=== PATIENT | male | born 1965 | race Caucasian/White ===

== ENCOUNTER 2023-10-04 15:41 | Inpatient (IN) | payer BC ==
[~2023-10-04] VITALS: Ht 170.2 cm; Wt 86.0 kg
[2023-10-04 16:02] LABS: APPEARANCE, URINE MANUAL TURBID (CLEAR); COLOR, URINE MANUAL RED (YELLOW)
[2023-10-04 16:04] LABS: BILIRUBIN, URINE MANUAL NEGATIVE (NEGATIVE); GLUCOSE, URINE (UA) MANUAL NEGATIVE (NEGATIVE); PROTEIN, URINE MANUAL 3+ mg/dL (NEGATIVE); SPECIFIC GRAVITY,URINE MANUAL 1.015 (1.002-1.035); UROBILINOGEN, URINE MANUAL NORMAL (NORMAL)
[2023-10-04 16:05] LABS: BLOOD URINE MANUAL POSITIVE (NEGATIVE); KETONE, URINE MANUAL OBSCURED mg/dL (NEGATIVE); LEUKOCYTE ESTERASE, URINE MAN POSITIVE (NEGATIVE); NITRITE, URINE MANUAL OBSCURED (NEGATIVE)
[2023-10-04 16:24] LABS: BASO # 0.1 10^3/uL (0.0-0.2); BASO % 0.4 % (0.0-1.0); EOS # 0.1 10^3/uL (0.0-0.5); EOS % 0.7 % (0.0-3.0); HEMATOCRIT 36.4 % (42.0-52.0); HEMOGLOBIN 11.7 g/dl (13.5-17.5); LYMPH % 7.2 % (24.0-44.0); MEAN CORPUSCULAR HEMOGLOBIN 27.5 pg (27.0-33.0); MEAN CORPUSCULAR HGB CONC 32.1 g/dl (32.0-36.5); MEAN CORPUSCULAR VOLUME 85.4 fl (80.0-96.0); MONO # 1.3 10^3/uL (0.0-0.8); MONO % 9.5 % (2.0-8.0); NEUTROPHILS # 11.2 10^3/uL (1.5-8.5); NEUTROPHILS % 81.8 % (36.0-66.0); PLATELET COUNT, AUTOMATED 343 10^3/uL (150-450); RED BLOOD COUNT 4.26 10^6/uL (4.30-6.10); WHITE BLOOD COUNT 13.7 10^3/uL (4.0-10.0)
[2023-10-04 16:27] LABS: BACTERIA, URINE SMALL AMOUNT; RBC, URINE TNTC /hpf (0-3); SQUAMOUS EPITHELIAL CELL URINE SMALL AMOUNT /hpf (SMALL AMT)
[2023-10-04 16:28] LABS: HYALINE CAST, URINE NONE SEEN /lpf (0-1)
[2023-10-04] MEDS: HYDROMORPHONE HCL 0.5 MG/ 0.5 ML SYRINGE IV PRN (16:57)
[2023-10-04] MEDS: ONDANSETRON 4MG 2ML VIAL IV ONE (16:58)
[2023-10-04 17:01] LABS: ETHYL ALCOHOL (ETHANOL) < 0.003 % (0.000-0.010)
[2023-10-04 17:03] LABS: ALBUMIN 3.4 G/DL (3.2-5.2); ALKALINE PHOSPHATASE 64 U/L (46-116); ALT/SGPT 17 U/L (7.0-40); AST/SGOT 37 U/L (<34); BILIRUBIN,DIRECT 0.2 MG/DL (<0.4); BILIRUBIN,TOTAL 0.5 MG/DL (0.3-1.2); BLOOD UREA NITROGEN 16 MG/DL (9-23); CALCIUM LEVEL 9.3 MG/DL (8.5-10.1); CARBON DIOXIDE LEVEL 28 MMOL/L (20-31); CHLORIDE LEVEL 102 MMOL/L (98-107); CREATININE FOR GFR 1.41 MG/DL (0.70-1.30); GLUCOSE, FASTING 105 MG/DL (60-100); POTASSIUM SERUM 4.5 MMOL/L (3.5-5.1); SODIUM LEVEL 138 MMOL/L (136-145); TOTAL PROTEIN 6.9 G/DL (5.7-8.2)
[2023-10-04 17:06] LABS: THYROID STIMULATING HORMONE 1.085 uIU/ML (0.55-4.78)
[2023-10-04] MEDS: NS 1,000 ML IV ONE (17:29)
[2023-10-04 17:50] LABS: INR 1.13; PARTIAL THROMBOPLASTIN TIME 35.5 SECONDS (24.8-34.2); PROTHROMBIN TIME 14.2 SECONDS (12.5-14.5)
[2023-10-04 18:29] LABS: AMPHETAMINES LEVEL URINE NEGATIVE (NEGATIVE); BARBITURATES URINE NEGATIVE (NEGATIVE); BENZODIAZEPINES URINE NEGATIVE (NEGATIVE); CANNABINOIDS URINE NEGATIVE (NEGATIVE); COCAINE METABOLITE URINE NEGATIVE (NEGATIVE); METHADONE URINE NEGATIVE (NEGATIVE); OPIATES URINE NEGATIVE (NEGATIVE); PHENCYCLIDINE URINE NEGATIVE (NEGATIVE)
[2023-10-04] MEDS: oxyBUTYnin 5 MG TAB PO SCH (21:01)
[2023-10-04] MEDS ORDERED: FISH1CAP26 PO (21:05)
[2023-10-04] MEDS ORDERED: THERTAB52 PO (21:05)
[2023-10-04] MEDS ORDERED: TUMERIC PO (21:05)
[2023-10-04] MEDS ORDERED: HOME MED LIST COMPLETE! XX SCH (21:10)
[2023-10-04] MEDS ORDERED: MOM 30ML SUSPENSION UDC PO PRN (22:50)
[2023-10-04] MEDS: amLODIPine 5 MG TAB PO ONE (23:20)
[2023-10-04] MEDS: hydrALAZINE 20MG/ML 1ML VIAL IV PRN (23:21)
[2023-10-05] VITALS (7 sets, daily range): BP systolic 149–178; BP diastolic 73–88; TEMP 98–99.7; O2SAT 95–98
[2023-10-05] MEDS: MORPHINE 2 MG/ML 1ML VIAL IV PRN (00:43)
[2023-10-05 01:28] LABS: HEMATOCRIT 31.4 % (42.0-52.0); HEMOGLOBIN 10.2 g/dl (13.5-17.5)
[2023-10-05] MEDS: ACETAMINOPHEN TAB 650MG DOSE (2X325MG) PO PRN (02:01)
[2023-10-05 06:19] LABS: HEMOGLOBIN 10.3 g/dl (13.5-17.5); MEAN CORPUSCULAR HEMOGLOBIN 27.3 pg (27.0-33.0); MEAN CORPUSCULAR HGB CONC 32.2 g/dl (32.0-36.5); MEAN CORPUSCULAR VOLUME 84.9 fl (80.0-96.0); PLATELET COUNT, AUTOMATED 300 10^3/uL (150-450); RED BLOOD COUNT 3.77 10^6/uL (4.30-6.10); WHITE BLOOD COUNT 13.8 10^3/uL (4.0-10.0)
[2023-10-05 06:53] LABS: ALBUMIN 2.9 G/DL (3.2-5.2); BILIRUBIN,TOTAL 0.7 MG/DL (0.3-1.2); CALCIUM LEVEL 8.8 MG/DL (8.5-10.1); CREATININE FOR GFR 1.36 MG/DL (0.70-1.30); GLOMERULAR FILTRATION RATE 57.3 (>56); POTASSIUM SERUM 4.3 MMOL/L (3.5-5.1)
[2023-10-05] MEDS ORDERED: SODIUM CHLORIDE 0.9% 1000ML IV ONE (08:05)
[2023-10-05] MEDS ORDERED: ISOVUE-370 76% 100ML VIAL As Ordered ONE (08:31)
[2023-10-05] MEDS: NS 1,000 ML IV SCH (09:38)
[2023-10-05 13:20] LABS: HEMATOCRIT 33.3 % (42.0-52.0); HEMOGLOBIN 10.9 g/dl (13.5-17.5)
[2023-10-05] MEDS: HEPARIN SOD (PORCINE) 5000UNITS/ML 1ML VIAL/SYRINGE SQ SCH (15:19)
[2023-10-05 15:28] LABS: CALCIUM LEVEL 8.8 MG/DL (8.5-10.1); CREATININE FOR GFR 1.39 MG/DL (0.70-1.30); GLOMERULAR FILTRATION RATE 55.9 (>56); POTASSIUM SERUM 3.9 MMOL/L (3.5-5.1)
[2023-10-05] MEDS ORDERED: PROHANCE 279.3MG/ML 15ML VIAL As Ordered ONE (18:20)
[2023-10-05] MEDS ORDERED: PROHANCE 279.3MG/ML 5ML VIAL As Ordered ONE (18:20)
[2023-10-06 03:56] VITALS: BP 139/82; TEMP 98.4; O2SAT 94
[2023-10-06 06:01] LABS: HEMATOCRIT 30.9 % (42.0-52.0); HEMOGLOBIN 9.7 g/dl (13.5-17.5); MEAN CORPUSCULAR HEMOGLOBIN 27.2 pg (27.0-33.0); MEAN CORPUSCULAR HGB CONC 31.4 g/dl (32.0-36.5); MEAN CORPUSCULAR VOLUME 86.6 fl (80.0-96.0); PLATELET COUNT, AUTOMATED 279 10^3/uL (150-450); RED BLOOD COUNT 3.57 10^6/uL (4.30-6.10); WHITE BLOOD COUNT 10.5 10^3/uL (4.0-10.0)
[2023-10-06 06:19] LABS: CALCIUM LEVEL 8.3 MG/DL (8.5-10.1); CREATININE FOR GFR 1.43 MG/DL (0.70-1.30); GLOMERULAR FILTRATION RATE 54.1 (>56); POTASSIUM SERUM 4.4 MMOL/L (3.5-5.1)
[2023-10-06 07:33] VITALS: BP 160/82; TEMP 98.3; O2SAT 94
[2023-10-06] MEDS: amLODIPine 5 MG TAB PO SCH (08:24)
[2023-10-06 12:20] VITALS: BP 159/84; TEMP 97.9; O2SAT 97
[2023-10-06] MEDS ORDERED: AMLO1TAB24 PO (12:53)
[2023-10-06] MEDS: SENOKOT S TAB PO ONE (13:06)
[2023-10-06 13:10] VITALS: BP 159/84
[2023-10-06] MEDS: amLODIPine 5 MG TAB PO ONE (13:10)
[2023-10-06] MEDS ORDERED: OXYB5TAB14 PO (13:19)
[2023-10-06 14:02] VITALS: BP 157/82
== END 2023-10-06 15:17 | disposition home or self-care (01) | DRG 461 ==
LOC: M ED 15:41 → M ED INP 22:47 → M PCU 10-05 02:05
PROVIDERS: ADMIT Family Medicine; ATTEND Internal Medicine
DX: C64.1 Malignant neoplasm of right kidney, except renal pelvis (principal); N17.9 Acute kidney failure, unspecified; C78.01 Secondary malignant neoplasm of right lung; I10 Essential (primary) hypertension; I16.0 Hypertensive urgency; R31.0 Gross hematuria; Z88.0 Allergy status to penicillin; Z88.8 Allergy status to other drugs, medicaments and biological substances; D86.9 Sarcoidosis, unspecified

== ENCOUNTER → 2023-12-09 | Outpatient (CLI) | payer BC ==
[~2023-12-09] MED LIST: AMLO1TAB24 PO; FISH1CAP26 PO; GASTROGRAFIN SOLUTION 30ML As Ordered ONE; ISOVUE-370 76% 100ML VIAL As Ordered ONE; OXYB5TAB14 PO; THERTAB52 PO; TUMERIC PO
== END ==
LOC: M RAD 13:55
PROVIDERS: ATTEND Internal Medicine
DX: N28.89 Other specified disorders of kidney and ureter (principal)
CPT/HCPCS: 74177; Q9963; Q9967

== ENCOUNTER → 2023-12-14 | Outpatient (CLI) | payer BC ==
[~2023-12-14] MED LIST changes: -GASTROGRAFIN SOLUTION 30ML As Ordered ONE; -ISOVUE-370 76% 100ML VIAL As Ordered ONE; +PROHANCE 279.3MG/ML 15ML VIAL ONE
== END ==
LOC: M PLAIMG 08:13
PROVIDERS: ATTEND Internal Medicine
DX: N28.89 Other specified disorders of kidney and ureter (principal)
CPT/HCPCS: 70553; A9576

== ENCOUNTER → 2023-12-24 | Outpatient (CLI) | payer BC ==
[~2023-12-24] MED LIST changes: -PROHANCE 279.3MG/ML 15ML VIAL ONE
== END ==
LOC: M RAD 10:02
DX: N28.89 Other specified disorders of kidney and ureter (principal); C64.9 Malignant neoplasm of unspecified kidney, except renal pelvis
CPT/HCPCS: 78306; A9503

== ENCOUNTER → 2023-12-30 | Outpatient (CLI) | payer BC ==
[~2023-12-30] MED LIST changes: +PROHANCE 279.3MG/ML 15ML VIAL ONE
== END ==
LOC: M PLAIMG 09:57
PROVIDERS: ATTEND Nurse Practitioner
DX: M67.813 Other specified disorders of tendon, right shoulder (principal); S43.431A Superior glenoid labrum lesion of right shoulder, initial encounter; M50.30 Other cervical disc degeneration, unspecified cervical region; Y93.9 Activity, unspecified; Y92.9 Unspecified place or not applicable
CPT/HCPCS: 72156; 73223; A9576